=== PATIENT | male | born 1965 | race Asian ===

== ENCOUNTER 2018-07-11 07:16 | Outpatient (CLI) | payer OTHER | END 2018-07-11 07:23 | disposition short-term general hospital (02) | LOC: AMB 07:16 | DX: R55 Syncope and collapse (principal) | CPT/HCPCS: A0425; A0427 ==

== ENCOUNTER 2018-07-11 07:32 | Emergency (ER) | payer OTHER ==
[~2018-07-11] VITALS: Ht 182.9 cm; Wt 102.1 kg
[2018-07-11 07:36] VITALS: TEMP 98.1
[2018-07-11 08:13] LABS: PLATELET COUNT 233 K/uL (142-355)
[2018-07-11 08:23] LABS: POTASSIUM 3.4 mmol/L (3.6-5.2); SODIUM 140 mmol/L (136-145)
[2018-07-11 09:07] VITALS: BP 151/97
== END 2018-07-11 09:12 | disposition home or self-care (01) ==
LOC: ED 07:32
PROVIDERS: Internal Medicine
DX: R55 Syncope and collapse (principal); R00.1 Bradycardia, unspecified
CPT/HCPCS: 80053; 82550; 84484; 85027; 93005; 99283